=== PATIENT | female | born 1965 | race Caucasian/White ===

== ENCOUNTER → 2017-03-02 | Outpatient (CLI) | payer BC ==
[2017-03-02 14:16] LABS: ESTIMATED AVERAGE GLUCOSE 143 mg/dl; HA1C FLAG Normal (Normal)
[2017-03-02 14:19] LABS: ALT/SGPT 33 U/L (12-78); BLOOD UREA NITROGEN 20 mg/dl (7-18); BUN/CREATININE RATIO 23.7 (10-20); CALCIUM 9.2 mg/dl (8.5-10.1); CARBON DIOXIDE 28 mmol/L (21-32); CHLORIDE 106 mmol/L (98-107); CREATININE 0.86 mg/dl (0.60-1.20); GLUCOSE 116 mg/dl (70-99); SODIUM 142 mmol/L (136-145)
[2017-03-02 14:25] LABS: CHOLESTEROL 152 mg/dl (0-200); CHOLESTEROL/HDL RATIO 4.1; HDL CHOLESTEROL 37 mg/dl; TRIGLYCERIDES 285 mg/dl (0-150); VERY LOW DENSITY LIPOPROT CALC 57 mg/dl
== END | disposition home or self-care (01) ==
LOC: C.LABMFLN 08:03
PROVIDERS: ATTEND Family Medicine
DX: E78.5 Hyperlipidemia, unspecified (principal); E78.00 Pure hypercholesterolemia, unspecified; R73.01 Impaired fasting glucose

== ENCOUNTER → 2017-03-05 | Outpatient (CLI) | payer BC ==
[2017-03-05 15:27] LABS: RHEUMATOID FACTOR < 10.0 U/mL (0-15); URIC ACID 5.1 mg/dl (2.6-7.2)
== END | disposition home or self-care (01) ==
LOC: C.LABMFLN 07:26
PROVIDERS: ATTEND Family Medicine
DX: R22.9 Localized swelling, mass and lump, unspecified (principal)

== ENCOUNTER → 2017-12-05 | Outpatient (CLI) | payer BC ==
[2017-12-05 17:57] LABS: BASO % 0.3 %; BASO ABS # 0.03 K/uL (0-0.2); EOS % 1.1 %; EOS ABS # 0.12 K/uL (0-0.5); HEMATOCRIT 43.6 % (37-47); HEMOGLOBIN 14.3 g/dL (12.0-16.0); IG# 0.05 K/uL (0.00-0.02); LYMPH % 31.4 %; LYMPH ABS # 3.41 K/uL (1.2-3.4); MEAN CELL VOLUME 92.4 fL (80-100); MEAN CORPUSCULAR HEMOGLOBIN 30.3 pg (25-34); MEAN CORPUSCULAR HGB CONC 32.8 g/dl (32-36); MONO % 6.9 %; MONO ABS # 0.75 K/uL (0.11-0.59); NEUT % 59.8 %; NEUT ABS # 6.51 K/uL (1.4-6.5); PLATELET COUNT 232 K/uL (130-400); RED CELL DISTRIBUTION WIDTH SD 46.6 fL (36.4-46.3); WHITE BLOOD COUNT 10.87 K/uL (4.8-10.8)
[2017-12-05 18:17] LABS: ALT/SGPT 29 U/L (12-78); BLOOD UREA NITROGEN 18 mg/dl (7-18); CALCIUM 9.2 mg/dl (8.5-10.1); CARBON DIOXIDE 30 mmol/L (21-32); GLUCOSE 102 mg/dl (70-99); POTASSIUM 3.7 mmol/L (3.5-5.1); SODIUM 138 mmol/L (136-145)
[2017-12-05 18:18] LABS: LDL CHOLESTEROL (DIRECT) 88 mg/dl
[2017-12-06 06:17] LABS: HEMOGLOBIN A1C 6.6 % (4.5-5.6)
== END | disposition home or self-care (01) ==
LOC: C.LABMFLN 13:51
PROVIDERS: ATTEND Family Medicine
DX: E78.00 Pure hypercholesterolemia, unspecified (principal); R73.01 Impaired fasting glucose; K57.32 Diverticulitis of large intestine without perforation or abscess without bleeding; R35.0 Frequency of micturition

== ENCOUNTER → 2018-02-19 | Outpatient (CLI) | payer BC | END | disposition home or self-care (01) | LOC: C.LABMFLN 12:19 | PROVIDERS: ATTEND Family Medicine | DX: R31.29 Other microscopic hematuria (principal) ==

== ENCOUNTER → 2018-02-25 | Outpatient (CLI) | payer BC ==
[2018-02-25 17:47] LABS: BASO % 0.2 %; BASO ABS # 0.02 K/uL (0-0.2); EOS % 1.7 %; EOS ABS # 0.15 K/uL (0-0.5); HEMATOCRIT 42.5 % (37-47); HEMOGLOBIN 14.3 g/dL (12.0-16.0); IG# 0.07 K/uL (0.00-0.02); LYMPH % 39.7 %; LYMPH ABS # 3.43 K/uL (1.2-3.4); MEAN CELL VOLUME 90.6 fL (80-100); MEAN CORPUSCULAR HEMOGLOBIN 30.5 pg (25-34); MEAN CORPUSCULAR HGB CONC 33.6 g/dl (32-36); MEAN PLATELET VOLUME 11.3 fL (7.4-10.4); MONO % 6.3 %; MONO ABS # 0.54 K/uL (0.11-0.59); NEUT % 51.3 %; NEUT ABS # 4.42 K/uL (1.4-6.5); PLATELET COUNT 225 K/uL (130-400); RED CELL DISTRIBUTION WIDTH CV 13.9 % (11.5-14.5); RED CELL DISTRIBUTION WIDTH SD 45.8 fL (36.4-46.3); WHITE BLOOD COUNT 8.63 K/uL (4.8-10.8)
== END | disposition home or self-care (01) ==
LOC: C.LABMFLN 09:43
PROVIDERS: ATTEND Family Medicine
DX: K52.9 Noninfective gastroenteritis and colitis, unspecified (principal)

== ENCOUNTER → 2018-02-26 | Outpatient (CLI) | payer BC ==
[2018-02-27 05:50] LABS: HEMOGLOBIN A1C 6.6 % (4.5-5.6)
== END | disposition home or self-care (01) ==
LOC: C.LABMFLN 08:30
PROVIDERS: ATTEND Family Medicine
DX: Z00.00 Encounter for general adult medical examination without abnormal findings (principal); E78.00 Pure hypercholesterolemia, unspecified; R73.01 Impaired fasting glucose; K52.9 Noninfective gastroenteritis and colitis, unspecified